=== PATIENT | female | born 1945 | race Caucasian/White ===

== ENCOUNTER → 2017-11-11 | Day surgery (SDC) | payer MEDICARE ==
[2017-11-11 12:05] VITALS: TEMP 97.4
--- NOTE | 2017-11-11 12:08 | ULT ---
FINE NEEDLE ASPIRATION OF RIGHT THYROID NODULE WITH ULTRASOUND GUIDANCE: Date: 11-11-17 History: 72-year-old female with solid nodule within the right lobe of the thyroid gland. FINDINGS: Informed consent obtained prior to the procedure. Pre procedural imaging demonstrates a dominant jose d heterogeneously isoechoic nodule within the right lobe of the thyroid gland measuring 2.1 x 1.3 cm. Skin overlying this lesion was prepped and draped in normal sterile fashion and anesthetized with 1% buffered Lidocaine. With direct sonographic guidance, four fine needle aspirations were obtained of this lesion and aspir ated material was given to the pathologist. Patient tolerated the procedure well. Post procedural dottie ging demonstrates no evidence for hemorrhage. IMPRESSION: Successful fine needle aspiration of right thyroid nodule. POS: [facility]
== END ==
LOC: ULT 10:00
PROVIDERS: ATTEND Otolaryngology Plastic Surgery within the Head & Neck
PROC: 0G9H3ZX Drainage of Right Thyroid Gland Lobe, Percutaneous Approach, Diagnostic (ICD-10-PCS; principal; 2017-11-11)
DX: E04.1 Nontoxic single thyroid nodule (principal)
CPT/HCPCS: 10022; 76942; 88173